=== PATIENT | male | born 1990 | race Caucasian/White ===

== ENCOUNTER 2017-06-05 02:12 | Emergency (ER) | payer OTHER ==
[~2017-06-05] VITALS: Ht 190.5 cm; Wt 88.5 kg
[2017-06-05 02:15] VITALS: TEMP 36.3; Ht 190.5 cm; Wt 88.5 kg
[2017-06-05 04:05] LABS: CALCIUM 8.7 mg/dl (8.5-10.1); CREATININE 1.25 mg/dl (0.60-1.40); POTASSIUM 3.9 mmol/L (3.5-5.1)
--- NOTE | 2017-06-05 06:01 | EMERGENCY ROOM VISIT NOTE ---
History Report prepared by Freddy: Aaliyah Zavala Under the Supervision of: Dr. Joan Hill D.O. 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 The patient presents to the ED by EMS. He was found sleeping on the floor of the waters of his friend's dorm room. He had been drinking alcohol today. He denies any injury. He denies having any pain or nausea. The history is limited due to the patient's alcohol intoxication. 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 Review of Systems Limited due to intoxication. Past Medical & Surgical No significant past medical history. Family History No pertinent family history stated. Social History Smoking Status: Never Smoker Current/Historical Medications No Active Prescriptions or Reported Meds Allergies Coded Allergies: No Known Allergies (Unverified , 06/05/17) Physical Exam Vital Signs Date Time Temp Pulse Resp B/P (MAP) Pulse Ox O2 Delivery O2 Flow Rate FiO2 06/05/17 06:54 122 18 135/74 96 Room Air 06/05/17 06:35 83 18 110/73 94 Room Air 06/05/17 06:03 82 06/05/17 05:21 75 18 111/49 94 Room Air 06/05/17 03:07 71 18 149/77 97 Room Air 06/05/17 02:27 Room Air 06/05/17 02:27 Room Air 06/05/17 02:22 100 06/05/17 02:15 36.3 79 16 163/77 96 Room Air Physical Exam GENERAL: smells of alcohol, answering questions, alert, well appearing, well nourished, no distress, non-toxic EYE EXAM: normal conjunctiva, PERRL and EOM's grossly intact OROPHARYNX: no exudate, no erythema, lips, buccal mucosa, and tongue normal and mucous membranes are moist NECK: supple, no nuchal rigidity, no adenopathy, non-tender. No evidence of trauma. CHEST: No evidence of trauma. LUNGS: Clear to auscultation. Normal chest wall mechanics HEART: no murmurs, S1 normal and S2 normal ABDOMEN: abdomen soft, non-tender, normo-active bowel sounds, no masses, no rebound or guarding. BACK: Back is symmetrical on inspection and there is no deformity, no midline tenderness, no CVA tenderness. No evidence of trauma. SKIN: no rashes and no bruising UPPER EXTREMITIES: upper extremities are grossly normal. No evidence of trauma. LOWER EXTREMITIES: No pitting edema. No evidence of trauma. NEURO EXAM: Normal sensorium, cranial nerves II-XII grossly intact, normal speech, no gross weakness of arms, no gross weakness of legs. Medical Decision & Procedures Laboratory Results 06/05/17 02:22 Test 06/05/17 02:22 Anion Gap 6.0 mmol/L (3-11) Est Creatinine Clear Calc Drug Dose 108.0 ml/min Estimated GFR () 92.2 Estimated GFR (Non- 79.5 BUN/Creatinine Ratio 11.5 (10-20) Calcium Level 8.7 mg/dl (8.5-10.1) Chemistry Specimen Hemolysis Ethyl Alcohol mg/dL 289.0 mg/dl (0-3) Laboratory results per my review. ED Course 0226: The patient was evaluated in room A12B. A complete history and physical exam was performed. 0711: Pt awake and improved. No complaints at this time. Medical Decision Differential diagnosis: Etiologies such as alcohol intoxication, toxicologic, infection, hypoglycemia, electrolyte abnormalities, cardiac sources, intracerebral event, neurologic, as well as others were entertained. Patient well-appearing here, no evidence of trauma. Vital signs stable throughout, on reexam patient awake and alert, tolerating by mouth, and denied complaints. Patient able ambulate with steady gait. Discussed symptoms to watch and return for, responsibly use of alcohol, he verbalized understanding and was agreeable with plan. Medication Reconcilliation Current Medication List: was personally reviewed by me Blood Pressure Screening Patient's blood pressure: Normal blood pressure Blood pressure disposition: Did not require urgent referral Impression Primary Impression: Alcoholic intoxication Scribe Attestation The scribe's documentation has been prepared under my direction and personally reviewed by me in its entirety. I confirm that the note above accurately reflects all work, treatment, procedures, and medical decision making performed by me. Departure Information Dispostion Home / Self-Care Prescriptions No Active Prescriptions or Reported Meds Patient Instructions My [facility] Additional Instructions Please drink responsibly and in a safe location, do not drink and drive. If you 've any other new or concerning symptoms, please return the emergency room. Problem Qualifiers Primary Impression: Alcoholic intoxication Complication of substance-induced condition: uncomplicated Qualified Codes: F10.920 - Alcohol use, unspecified with intoxication, uncomplicated
[2017-06-05 06:54] VITALS: BP 135/74; PULSE 122; O2SAT 96
== END 2017-06-05 07:48 | disposition home or self-care (01) ==
LOC: EDBD 02:12 → C.EDA 02:13
DX: F10.920 Alcohol use, unspecified with intoxication, uncomplicated (principal)